=== PATIENT | female | born 1995 | race Two or more races ===

== ENCOUNTER 2019-08-18 12:05 | Emergency (ER) | payer SELFPAY ==
[~2019-08-18] VITALS: Ht 149.9 cm; Wt 65.8 kg
--- NOTE | 2019-08-18 12:13 | NUR ---
CAME IN FOR ABSCESS, RIGHT INFERIOR-GLUTEAL AREA, TO ER BED 7, HOOKED TO MONITOR, CHANGED T[facility], WARM BLANKET PROVIDED, AWAITING MD CARRILLO.
--- NOTE | 2019-08-18 12:18 | NUR ---
AIRPLANE PILOT PHOTOGRAMMETRY DEGRASSE AT BEDSIDE
[2019-08-18] MEDS ORDERED: LIDOCAINE 1%-EPI 1:100,000 20 ML VIAL ONE (12:20)
[2019-08-18] MEDS ORDERED: LIDOCAINE 1%-EPI 1:100,000 50 ML VIAL IJ ONE (12:30)
--- NOTE | 2019-08-18 13:02 | NUR ---
GROUP LEADER SEMICONDUCTOR PROCESSING DEGRASSE AT BEDSIDE FOR I&D
--- NOTE | 2019-08-18 13:20 | NUR ---
Patient discharged to home in stable condition. Written and verbal after care instructions given. Patient verbalizes understanding of instruction.
[2019-08-18 13:28] VITALS: BP 138/79
== END 2019-08-18 13:20 | disposition home or self-care (01) ==
LOC: ER 12:05
DX: L02.415 Cutaneous abscess of right lower limb (principal); L02.426 Furuncle of left lower limb
CPT/HCPCS: 10060; 99282; A6403; A6407; J3490 ×2

== ENCOUNTER → 2019-09-26 | Emergency (ER) | payer MEDICAID, OTHER ==
[~2019-09-26] VITALS: Ht 149.9 cm; Wt 61.2 kg
[2019-09-26 16:01] VITALS: BP 132/76
== END | disposition home or self-care (01) ==
LOC: ER 15:57
DX: R06.02 Shortness of breath (principal); R42 Dizziness and giddiness; Z77.098 Contact with and (suspected) exposure to other hazardous, chiefly nonmedicinal, chemicals